=== PATIENT | female | born 1935 | race Caucasian/White ===

== ENCOUNTER 2017-08-14 09:05 | Emergency (ER) | payer OTHER, BC ==
--- NOTE | 2017-08-14 09:52 | EDPHYS ---
Physician Documentation [facility] Name: Jordan Arias Age: 81 yrs Sex: Female : 1935 Arrival Date: 08/14/2017 Time: 09:07 Bed 23 Private MD: Oswaldo Lawrence ED Physician Eligio Boyd HPI: 08/14 09:49 This 81 yrs old Female presents to ER via Ambulatory with complaints of Rash. rn 09:49 The patient's rash thought to be caused by an unknown cause. The rash is located on the rn back. The rash can be described as crusted, erythematous, vesicular. Onset: The symptoms/episode began/occurred yesterday. Severity of symptoms: At their worst the symptoms were mild in the emergency department the symptoms are unchanged. The patient has not experienced similar symptoms in the past. Reports rash to right flank that began yesterday or noticed yesterday, no trauma, no fever. . Historical: - Allergies: 09:20 No Known Allergies; sv - PMHx: 09:20 Atrial Fib; sv - PSHx: 09:20 Appendectomy; Mastectomy; Tonsillectomy; sv - Immunization history:: Adult Immunizations up to date. - Social history:: Smoking status: Patient/guardian denies using tobacco. - Ebola Screening: : No symptoms or risks identified at this time. - Family history:: not pertinent. - Hospitalizations: : No recent hospitalization is reported. ROS: 09:49 Constitutional: Negative for fever, chills, and weight loss, Skin: + rash rn Exam: 09:49 Constitutional: This is a well developed, well nourished patient who is awake, alert, rn and in no acute distress. Skin: Warm, dry. + right flank/back with linear erythematous and pustular/crusted rash that does not cross midline Vital Signs: 09:20 BP 157 / 63; Pulse 62; Resp 18; Temp 98.2; Pulse Ox 95% ; Weight 71.67 kg; Height 5 ft. sv 7 in. (170.18 cm); Pain 0/10; 09:20 Body Mass Index 24.75 (71.67 kg, 170.18 cm) sv MDM: 09:33 Patient medically screened. rn 09:49 Differential diagnosis: zoster. Data reviewed: vital signs, nurses notes, and as a rn result, I will discharge patient. Counseling: I had a detailed discussion with the patient and/or guardian regarding: the historical points, exam findings, and any diagnostic results supporting the discharge/admit diagnosis, the need for outpatient follow up, to return to the emergency department if symptoms worsen or persist or if there are any questions or concerns that arise at home. Special discussion: I discussed with the patient/guardian in detail that at this point there is no indication for admission to the hospital. It is understood, however, that if the symptoms persist or worsen the patient needs to return immediately for re-evaluation. Administered Medications: No medications were administered Disposition: 08/14/17 09:51 Discharged to Home. Impression: Zoster without complications. - Condition is Stable. - Discharge Instructions: Shingles. - Prescriptions for Valtrex 1 g Oral Tablet - take 1 tablet by ORAL route every 8 hours for 7 days; 21 tablet. Medrol (Bashir) 4 mg Oral Tablets, Dose Pack - take 1 tablet by ORAL route as directed - follow package instructions; 1 packet. - Medication Reconciliation Form, Thank You Letter, Antibiotic Education, Prescription Opioid Use form. - Follow up: Oswaldo Lawrence MD; When: As needed; Reason: Recheck today's complaints, Re-evaluation by your physician. - Problem is new. - Symptoms are unchanged. Signatures: Sandra Cox RN RN Eligio De La Garza MD MD rn Smirch, Shelby, RN RN ss Corrections: (The following items were deleted from the chart) 09:57 09:51 08/14/2017 09:51 Discharged to Home. Impression: Zoster without complications. ss Condition is Stable. Forms are Medication Reconciliation Form, Thank You Letter, Antibiotic Education, Prescription Opioid Use. Follow up: Oswaldo Lawrence; When: As needed; Reason: Recheck today's complaints, Re-evaluation by your physician. Problem is new. Symptoms are unchanged. rn
--- NOTE | 2017-08-14 09:52 | ER ---
Nurse's Notes [facility] Name: Jordan Arias Age: 81 yrs Sex: Female : 1935 Arrival Date: 08/14/2017 Time: 09:07 Bed 23 Private MD: Oswaldo Lawrence Diagnosis: Zoster without complications Presentation: 08/14 09:19 Presenting complaint: Patient states: rash to the back. "I think it's shingles.". sv Transition of care: patient was not received from another setting of care. Onset of symptoms was August 13, 2017. Care prior to arrival: None. 09:19 Method Of Arrival: Ambulatory sv 09:19 Acuity: ERIN 5 sv 09:57 Risk Assessment: Do you want to hurt yourself or someone else? Patient reports no ss desire to harm self or others. Initial Sepsis Screen: Does the patient meet any 2 criteria? No. Patient's initial sepsis screen is negative. Does the patient have a suspected source of infection? No. Patient's initial sepsis screen is negative. Historical: - Allergies: 09:20 No Known Allergies; sv - PMHx: 09:20 Atrial Fib; sv - PSHx: 09:20 Appendectomy; Mastectomy; Tonsillectomy; sv - Immunization history:: Adult Immunizations up to date. - Social history:: Smoking status: Patient/guardian denies using tobacco. - Ebola Screening: : No symptoms or risks identified at this time. - Family history:: not pertinent. - Hospitalizations: : No recent hospitalization is reported. Screenin:31 Abuse screen: Denies threats or abuse. Denies injuries from another. Nutritional ss screening: No deficits noted. Tuberculosis screening: Never had TB. Fall Risk None identified. Assessment: 09:31 General: Appears in no apparent distress. comfortable, Behavior is calm, cooperative. ss Neuro: Level of Consciousness is awake, alert, obeys commands, Oriented to person, place, time, situation. Cardiovascular: Capillary refill < 3 seconds is brisk in bilateral fingers. Respiratory: Airway is patent Respiratory effort is even, unlabored, Respiratory pattern is regular, symmetrical. GI: No signs and/or symptoms were reported involving the gastrointestinal system. EENT: Oral mucosa is moist. Derm: Skin is intact, is healthy with good turgor, Skin is pink, warm \\T\\ dry. normal. Musculoskeletal: Circulation, motion, and sensation intact. Capillary refill < 3 seconds, is brisk, in bilateral fingers. Range of motion: intact in all extremities. Vital Signs: 09:20 BP 157 / 63; Pulse 62; Resp 18; Temp 98.2; Pulse Ox 95% ; Weight 71.67 kg; Height 5 ft. sv 7 in. (170.18 cm); Pain 0/10; 09:20 Body Mass Index 24.75 (71.67 kg, 170.18 cm) sv ED Course: 09:07 Patient arrived in ED. sb2 09:07 Oswaldo Lawrence MD is Private Physician. sb2 09:20 Triage completed. sv 09:25 Violette Weber RN is Primary Nurse. ss 09:31 Patient has correct armband on for positive identification. Bed in low position. Call ss light in reach. 09:33 Eligio Boyd MD is Attending Physician. rn 09:51 Oswaldo Lawrence MD is Referral Physician. rn 09:56 No provider procedures requiring assistance completed. Patient did not have IV access ss during this emergency room visit. 09:57 Arm band placed on right wrist. ss Administered Medications: No medications were administered Outcome: 09:51 Discharge ordered by . rn 09:56 Discharged to home ambulatory, with family. ss 09:56 Condition: good 09:56 Discharge instructions given to patient, family, Instructed on discharge instructions, follow up and referral plans. medication usage, Demonstrated understanding of instructions, follow-up care, medications, Prescriptions given X 2. 09:57 Patient left the ED. ss Signatures: Sandra Cox RN RN Eligio Boyd MD MD rn Smirch, Shelby, RN RN Sandy Llanos sb2 Corrections: (The following items were deleted from the chart) 09:22 09:20 BP 157 / 63; Pulse 62bpm; Resp 18bpm; Pulse Ox 95%; 71.67 kg; Height 5 ft. 7 in.; sv BMI: 24.7; Pain 0/10; sv
== END 2017-08-14 09:57 | disposition home or self-care (01) ==
LOC: ER 09:05
DX: B02.9 Zoster without complications (principal); I48.91 Unspecified atrial fibrillation
CPT/HCPCS: 99282

== ENCOUNTER 2019-12-27 11:08 | Observation (INO) | payer OTHER, BC ==
[2019-12-27 11:42] LABS: Absolute Lymphocytes (CBC) 1.9 K/uL (0.7-4.9); Basophils % 0.9 % (0-1.3); Hematocrit 40.6 % (36.0-45.0); Lymphocytes % 30.6 % (15.3-44.8); MPV 9.9 fL (7.6-11.3); RBC Red Blood Cell Count 4.21 M/uL (3.86-4.86)
[2019-12-27 11:43] LABS: Protime INR 1.43
[2019-12-27 12:04] LABS: ALT/SGPT 21 U/L (12-78); AST/SGOT 28 U/L (15-37); Albumin 3.2 g/dL (3.4-5.0); Alkaline Phosphatase 115 U/L (45-117); BUN Blood Urea Nitrogen 11 mg/dL (7-18); Bicarbonate 27 mmol/L (21-32); Bilirubin Direct 0.2 mg/dL (0-0.2); Bilirubin Total 0.6 mg/dL (0.2-1.0); Glucose Level 131 mg/dL (74-106); Magnesium 2.2 mg/dL (1.8-2.4); NT PRO-BNP 1445 pg/mL (<450); Potassium 3.4 mmol/L (3.5-5.1); Protein, Total 7.4 g/dL (6.4-8.2); Sodium Level 144 mmol/L (136-145); Troponin (Emerg Dept Use Only) < 0.02 ng/mL (0.0-0.045)
--- NOTE | 2019-12-27 12:41 | RAD REPORT ---
EXAM DESCRIPTION: RAD - Chest Single View - 12/27/2019 12:15 pm CLINICAL HISTORY: PALPITATIONS COMPARISON: Portable April 2014 TECHNIQUE: AP portable chest image was obtained 12/27/2019 12:15 pm . FINDINGS: Chronic interstitial lung disease is present more pronounced than seen previously. No mass or consolidations seen. Mediastinal and hilar regions are similar to the comparison. Heart and vascu lature are normal. No measurable pleural effusion and no pneumothorax. No acute bone finding. Promine nt costochondral calcifications are present. No acute aortic findings suspected. IMPRESSION: Diffusely prominent interstitial pattern progressive from 2015. No focal mass or consoli dation. Interval change in the interstitial pattern may represent progressive fibrosis. A superimposed mild i nterstitial edema or infiltrate can have a similar appearance.
--- NOTE | 2019-12-27 13:13 | ER ---
Nurse's Notes [facility] Name: Jordan Arias Age: 84 yrs Sex: Female : 1935 Arrival Date: 12/27/2019 Time: 11:17 Bed 18 Private MD: Diagnosis: Atrial fibrillation and flutter-rapid ventricular response;Chest pain, unspecified Presentation: 12/26 11:18 Chief complaint: EMS states: called out for dizziness, palpitations, chest pain that sv started about an hour ago. Pt denies symptoms at this time and reports that she does feel better. Hx Afib. Coronavirus screen: Client denies travel out of the [place] in the last 14 days. Coronavirus screen: At this time, the client does not indicate any symptoms associated with coronavirus-19. Ebola Screen: No symptoms or risks identified at this time. Initial Sepsis Screen: Does the patient meet any 2 criteria? No. Patient's initial sepsis screen is negative. Does the patient have a suspected source of infection? No. Patient's initial sepsis screen is negative. Risk Assessment: Do you want to hurt yourself or someone else? Patient reports no desire to harm self or others. Onset of symptoms was December 27, 2019. 11:18 Method Of Arrival: EMS: [facility] sv 11:18 Acuity: ERIN 3 sv Triage Assessment: 11:18 General: Appears in no apparent distress. comfortable, well groomed, well developed, sv Behavior is calm, cooperative, appropriate for age. Pain: Denies pain. Neuro: Level of Consciousness is awake, alert, obeys commands, Oriented to person, place, time, situation, Moves all extremities. Full function. Cardiovascular: Rhythm is atrial fibrillation. Cardiovascular: Denies chest pain, palpitations. Respiratory: Airway is patent Respiratory effort is Respiratory pattern is regular, symmetrical. Derm: Skin is pink, warm \T\ dry. Historical: - Allergies: 11:21 No Known Allergies; sv - PMHx: 11:21 Atrial Fib; sv - PSHx: 11:21 Appendectomy; Tonsillectomy; Mastectomy, Left(1969); sv - Immunization history:: Adult Immunizations up to date. - Social history:: Smoking status: Patient denies any tobacco usage or history of. Screenin:22 Abuse screen: Denies threats or abuse. Denies injuries from another. Nutritional sv screening: No deficits noted. Tuberculosis screening: No symptoms or risk factors identified. Fall Risk None identified. Assessment: 11:35 Reassessment: Patient appears in no apparent distress at this time. No changes from sv previously documented assessment. Patient and/or family updated on plan of care and expected duration. Pain level reassessed. Patient is alert, oriented x 3, equal unlabored respirations, skin warm/dry/pink. 12:30 Reassessment: Patient appears in no apparent distress at this time. No changes from sv previously documented assessment. Patient and/or family updated on plan of care and expected duration. Pain level reassessed. Patient is alert, oriented x 3, equal unlabored respirations, skin warm/dry/pink. 14:42 Reassessment: Patient appears in no apparent distress at this time. No changes from sv previously documented assessment. Patient and/or family updated on plan of care and expected duration. Pain level reassessed. Patient is alert, oriented x 3, equal unlabored respirations, skin warm/dry/pink. 15:00 Reassessment: Patient appears in no apparent distress at this time. No changes from sv previously documented assessment. Patient and/or family updated on plan of care and expected duration. Pain level reassessed. Patient is alert, oriented x 3, equal unlabored respirations, skin warm/dry/pink. Vital Signs: 11:18 BP 152 / 54; Pulse 64; Resp 14; Temp 98.3; Pulse Ox 98% ; Weight 61.23 kg; Height 5 ft. sv 8 in. (172.72 cm); 12:59 BP 123 / 55; Pulse 96 MON; Resp 20; Pulse Ox 99% ; sv 14:43 BP 128 / 48; Pulse 76 MON; Resp 19; Pulse Ox 97% on R/A; sv 15:13 BP 135 / 59; Pulse 88; Resp 16; Pulse Ox 99% ; sv 11:18 Body Mass Index 20.53 (61.23 kg, 172.72 cm) sv 12:59 A fib sv 14:43 A fib sv ED Course: 11:17 Patient arrived in ED. sv 11:18 Sandra Cox, TAWANA is Primary Nurse. sv 11:18 Aaron Nichole NP is PHCP. pm1 11:18 Eligio Boyd MD is Attending Physician. pm1 11:20 Triage completed. sv 11:20 Patient maintains SpO2 saturation greater than 95% on room air. sv 11:21 Arm band placed on. sv 11:22 Patient has correct armband on for positive identification. Placed in gown. Bed in low sv position. Call light in reach. Side rails up X2. Adult w/ patient. library monitor on. Pulse ox on. NIBP on. Door closed. Head of bed elevated. 11:24 EKG done, by ED staff, reviewed by Aaron Nichole NP. em1 11:45 X-ray(s) taken. sv 11:55 XRAY Chest (1 view) Sent. sv 11:56 Awaiting lab results, Awaiting radiology results. sv 12:15 XRAY Chest (1 view) In Process Unspecified. EDMS 13:12 Yesenia Lawrence MD is Hospitalizing Provider. pm1 14:40 Awaiting bed assignment. sv 15:02 No provider procedures requiring assistance completed. Patient admitted, IV remains in sv place. intact. Administered Medications: 11:35 Drug: NS 0.9% 500 ml Route: IV; Rate: bolus; Site: left antecubital; sv 12:55 Follow up: Response: No adverse reaction; IV Status: Completed infusion; IV Intake: sv 500ml 13:22 Drug: Potassium Chloride 40 mEq Route: PO; sv 14:00 Follow up: Response: No adverse reaction sv Intake: 12:55 IV: 500ml; Total: 500ml. sv Outcome: 13:12 Decision to Hospitalize by Provider. pm1 15:02 Admitted to Tele accompanied by tech, via wheelchair, room 431, with chart, Report sv called to Irene GILLIAM 15:02 Condition: stable 15:02 Instructed on the need for admit. 15:12 Patient left the ED. sv Signatures: Dispatcher [employer] Sandra Vargas RN RN sv Martinez, Eric em1 Aaron Nichole NP RESP THER pm1
--- NOTE | 2019-12-27 13:13 | EDPHYS ---
Physician Documentation [facility] Name: Jordan Arias Age: 84 yrs Sex: Female : 1935 Arrival Date: 12/27/2019 Time: 11:17 Bed 18 Private MD: ED Physician Eligio Boyd HPI: 12/26 11:18 This 84 yrs old Female presents to ER via EMS with complaints of Dizziness, pm1 Chest Pain, Palpitations. 11:18 The patient presents with a history of heart racing. Context: The symptoms occur at pm1 rest. Onset: The symptoms/episode began/occurred just prior to arrival. Duration: The patient or guardian reports a single episode, that is now resolved. Modifying factors: The symptoms are aggravated by nothing. The symptoms are alleviated by IV fluids from EMS. Associated signs and symptoms: Pertinent positives: chest pain, SOB, Dizziness, Pertinent negatives: fever. Severity of symptoms: in the emergency department the symptoms have resolved. The patient has experienced similar episodes in the past, Patient reports monthly episodes of palpitations that are short in duration and resolve without any intervention. Today she had palpitations for 20 minutes with chest pain, shortness of breath, and dizziness. She typically does not have any chest pain with her palpitations. The chest pain and duration of her palpitations is what brought her to the ER today. Historical: - Allergies: 11:21 No Known Allergies; sv - PMHx: 11:21 Atrial Fib; sv - PSHx: 11:21 Appendectomy; Tonsillectomy; Mastectomy, Left(1969); sv - Immunization history:: Adult Immunizations up to date. - Social history:: Smoking status: Patient denies any tobacco usage or history of. ROS: 11:18 Constitutional: Negative for fever, chills, and weight loss. pm1 11:18 Abdomen/GI: Negative for abdominal pain, nausea, vomiting, diarrhea, and constipation, Back: Negative for injury and pain, MS/Extremity: Negative for injury and deformity, Skin: Negative for injury, rash, and discoloration. 11:18 Cardiovascular: Positive for chest pain, palpitations, Negative for edema. 11:18 Respiratory: Positive for shortness of breath, Negative for cough. 11:18 Neuro: Positive for dizziness, Negative for headache, numbness, tingling, weakness. Exam: 11:18 Constitutional: This is a well developed, well nourished patient who is awake, alert, pm1 and in no acute distress. Head/Face: Normocephalic, atraumatic. 11:18 Back: No spinal tenderness. No costovertebral tenderness. Full range of motion. Skin: Warm, dry with normal turgor. Normal color with no rashes, no lesions, and no evidence of cellulitis. MS/ Extremity: Pulses equal, no cyanosis. Neurovascular intact. Full, normal range of motion. 11:18 Cardiovascular: Rate: tachycardic, actual rate is 105 bpm, Rhythm: irregular, Pulses: no pulse deficits are appreciated, Heart sounds: normal, normal S1and S2, Edema: is not appreciated. 11:18 Respiratory: Exam negative for acute changes, the patient does not display signs of respiratory distress, Respirations: normal, Breath sounds: are clear throughout. 11:18 Neuro: Exam negative for acute changes, Orientation: is normal, Mentation: is normal, Motor: is normal, moves all fours. Vital Signs: 11:18 BP 152 / 54; Pulse 64; Resp 14; Temp 98.3; Pulse Ox 98% ; Weight 61.23 kg; Height 5 ft. sv 8 in. (172.72 cm); 12:59 BP 123 / 55; Pulse 96 MON; Resp 20; Pulse Ox 99% ; sv 14:43 BP 128 / 48; Pulse 76 MON; Resp 19; Pulse Ox 97% on R/A; sv 15:13 BP 135 / 59; Pulse 88; Resp 16; Pulse Ox 99% ; sv 11:18 Body Mass Index 20.53 (61.23 kg, 172.72 cm) sv 12:59 A fib sv 14:43 A fib sv MDM: 11:18 Patient medically screened. pm1 13:11 Data reviewed: vital signs. Data interpreted: Pulse oximetry: on room air is 99 %. pm1 Interpretation: normal. Counseling: I had a detailed discussion with the patient and/or guardian regarding: the historical points, exam findings, and any diagnostic results supporting the discharge/admit diagnosis, lab results, radiology results, the need for further work-up and treatment in the hospital. 13:58 Physician consultation: A Melinda CORRALES was called at 13:15, was contacted at 14:01, pm1 regarding admission, patient's condition, and will see patient would like consultation with Dr. Layne, Continue her Eliquis and sotalol. 12/26 11:18 Order name: Basic Metabolic Panel; Complete Time: 12:07 pm1 12/26 11:18 Order name: CBC with Diff; Complete Time: 11:56 pm1 12/26 11:18 Order name: LFT's; Complete Time: 12:07 pm1 12/26 11:18 Order name: Magnesium; Complete Time: 12:07 pm1 12/26 11:18 Order name: NT PRO-BNP; Complete Time: 12:07 pm1 12/26 11:18 Order name: PT-INR; Complete Time: 11:56 pm1 12/26 11:18 Order name: Troponin (emerg Dept Use Only); Complete Time: 12:07 pm1 12/26 11:18 Order name: XRAY Chest (1 view); Complete Time: 12:47 pm1 12/26 11:18 Order name: EKG; Complete Time: 11:19 pm1 12/26 11:18 Order name: Cardiac monitoring; Complete Time: 11:23 pm1 12/26 11:18 Order name: EKG - Nurse/Tech; Complete Time: 11:23 pm1 12/26 11:18 Order name: TSH; Complete Time: 12:07 pm1 12/26 11:18 Order name: IV Saline Lock; Complete Time: 11:23 pm1 12/26 11:18 Order name: Labs collected and sent; Complete Time: 11:45 pm1 12/26 11:18 Order name: O2 Per Protocol; Complete Time: 11:23 pm1 12/26 11:18 Order name: O2 Sat Monitoring; Complete Time: 11:23 pm1 Administered Medications: 11:35 Drug: NS 0.9% 500 ml Route: IV; Rate: bolus; Site: left antecubital; sv 12:55 Follow up: Response: No adverse reaction; IV Status: Completed infusion; IV Intake: sv 500ml 13:22 Drug: Potassium Chloride 40 mEq Route: PO; sv 14:00 Follow up: Response: No adverse reaction sv Disposition: 15:19 Co-signature as Attending Physician, Eligio Boyd MD. rn Disposition: 12/27/19 13:12 Hospitalization ordered by Yesenia Lawrence for Observation. Preliminary diagnosis are Atrial fibrillation and flutter - rapid ventricular response, Chest pain, unspecified. - Bed requested for Telemetry/MedSurg (observation). - Status is Observation. sv - Condition is Stable. - Problem is new. - Symptoms are resolved. Signatures: Dispatcher [employer] EDSandra Roberts, Eligio Hickman RN, MD MD rn Marinas, Patrick, ASSISTANT PRODUCE MANAGER ASSISTANT PRODUCE MANAGER pm1 Agustina Velazquez Corrections: (The following items were deleted from the chart) 14:53 13:12 Hospitalization Ordered by A Melinda CORRALES for Observation. Preliminary diagnosis is eb Atrial fibrillation and flutter - rapid ventricular response; Chest pain, unspecified. Bed requested for Telemetry/MedSurg (observation). Status is Observation. Condition is Stable. Problem is new. Symptoms are resolved. pm1 15:12 14:53 12/27/2019 13:12 Hospitalization Ordered by A Melinda CORRALES for Observation. sv Preliminary diagnosis is Atrial fibrillation and flutter - rapid ventricular response; Chest pain, unspecified. Bed requested for Telemetry/MedSurg (observation). Status is Observation. Condition is Stable. Problem is new. Symptoms are resolved. eb
[2019-12-27] MEDS ORDERED: POTASSIUM CL SA 10 MEQ TAB PO ONE (13:31)
[2019-12-27 16:43] VITALS: BMI 20.5
[2019-12-27] MEDS: SOTALOL HCL 80 MG TAB PO SCH (16:55)
--- NOTE | 2019-12-27 19:01 | HP ---
Date of Admission: 12/27/2019 Chief Complaint: Chest pain, palpitation. History Of Present Illness: This is an 84-year-old pleasant female patient, who has history of atrial fibrillation, who takes her medications regularly, came into emergency room today with episode of palpitation. Along with that, she has episode of chest pain which was something unusual for her as she normally does not have any chest pain. She came into emergency room with this. After she was evaluated, she was admitted to the hospital. Allergies: NO KNOWN ALLERGIES. Review of Systems: Cardiovascular: As mentioned above. All other systems reviewed and negative. Past Medical History: Significant for paroxysmal atrial fibrillation, breast cancer, osteoporosis, constipation, hyperlipidemia, and chronic anticoagulation therapy. Past Surgical History: Tonsillectomy, left-sided mastectomy due to cancer in 1978, appendectomy. Family History: Father had Alzheimer. Social History: Negative for smoking and alcohol use. DICTATION ENDS HERE. BALTAZAR/DREA Voice ID: [id number] MTDD
[2019-12-27] MEDS: APIXABAN 5 MG TABLET PO SCH (20:47)
[2019-12-28 04:23] LABS: Absolute Lymphocytes (CBC) 2.5 K/uL (0.7-4.9); Basophils % 1.1 % (0-1.3); Hematocrit 37.8 % (36.0-45.0); Lymphocytes % 37.5 % (15.3-44.8); MPV 10.2 fL (7.6-11.3); RBC Red Blood Cell Count 3.95 M/uL (3.86-4.86)
[2019-12-28 04:33] LABS: Potassium 4.5 mmol/L (3.5-5.1)
[2019-12-28] MEDS: SOTALOL HCL 80 MG TAB PO SCH (05:58)
[2019-12-28 08:01] VITALS: BP 156/68; TEMP 97.5
[2019-12-28] MEDS: APIXABAN 5 MG TABLET PO SCH (08:12)
[2019-12-28 08:40] VITALS: O2SAT 94
--- NOTE | 2019-12-28 10:10 | RAD REPORT ---
EXAM DESCRIPTION: CT - Thorax Wo Con - 12/28/2019 8:03 am CLINICAL HISTORY: sob COMPARISON: December 27, 2019 x-ray TECHNIQUE: Computed axial tomography of the chest was obtained. Contrast was not requested. All CT scans are performed using dose optimization technique as appropriate and may include automated exposure control or mA/KV adjustment according to patient size. FINDINGS: The evaluation of mediastinum, chelly and vessels is limited secondary to lack of IV contras t administration. Mild reticular subpleural opacities are present within right upper and right lower lobes. Small lingu lar opacity. No mediastinal or hilar lymphadenopathy is seen. A pleural effusion is not present. No pericardial effusion. Calcified pulmonary granulomas are presen t. Coronary arterial calcifications are seen. Cholelithiasis IMPRESSION: Mild right upper and right lower interstitial opacities may represent mild pulmonary fib rosis. Small lingular opacity probably chronic. Cholelithiasis without evidence cholecystitis
--- NOTE | 2019-12-29 07:38 | ECHO ---
HEIGHT: 5 ft 8 in WEIGHT: 135 lb 0 oz DATE OF STUDY: 12/28/[address]: Aaron Nichole NP 2-DIMENSIONAL: YES M.MODE: YES DOPPLER: YES COLOR FLOW: YES TDS: PORTABLE: DEFINITY: BUBBLE STUDY: DIAGNOSIS: ATRIAL FIBRILLATION WITH RAPID VENTRICULAR RESPONSE, CHEST PAIN CARDIAC HISTORY: CATHERIZATION: NO SURGERY: NO PROSTHETIC VALVE: NO PACEMAKER: NO MEASUREMENTS (cm) DIASTOLIC (NORMALS) SYSTOLIC (NORMALS) IVSd 1.2 (0.6-1.2) LA Diam 3.6 (1.9-4.0) LVEF 65% LVIDd 3.6 (3.5-5.7) LVIDs 2.4 (2.0-3.5) %FS 35% LVPWd 1.2 (0.6-1.2) Ao Diam 2.8 (2.0-3.7) 2 DIMENSIONAL ASSESSMENT: RIGHT ATRIUM: NORMAL LEFT ATRIUM: ENLARGED RIGHT VENTRICLE: NORMAL LEFT VENTRICLE: MILD LEFT VENTRICULAR HYPERTROPHY TRICUSPID VALVE: TRICUSPID REGURGITATION MITRAL VALVE: MODERATE MITRAL REGURGITATION PULMONIC VALVE: NORMAL AORTIC VALVE: MODERATE AORTIC INSUFFIENCY PERICARDIAL EFFUSION: NONE AORTIC ROOT: NORMAL LEFT VENTRICULAR WALL MOTION: NORMAL DOPPLER/COLOR FLOW: SEE BELOW COMMENTS: NORMAL LEFT VENTRICULAR EJECTION FRACTION 55-60% WITH NORMAL WALL MOTION. MODERATE MITRAL REGURGITATION, MODERATE AORTIC INSUFFIENCY, MILD TRICUSPID REGURGITATION. LEFT ATRIAL ENLARGEMENT. MODERATE PULMONARY HYPERTENSION WITH RIGHT VENTRICULAR SYSTOLIC PRESSURE OF 45-50 mmHg. DIASTOLIC DYSFUNCTION AND MILD LEFT VENTRICULAR HYPERTROPHY. TECHNOLOGIST: BERKLEY CARBAJAL
--- NOTE | 2019-12-29 09:05 | SS ---
Date of Discharge: 12/28/2019 Medications: Eliquis 5 mg 2 times a day and sotalol 120 mg 2 times a day. Physical Examination: Vital Signs: Height 5 feet 8 inches, weight 135 pounds, temperature 97.1, pulse 57, respiratory rate 16, blood pressure 144/65, oxygen saturation 99%. General: Awake, alert, oriented, not in distress. HEENT: Head atraumatic, normocephalic. Conjunctivae nonerythematous. Sclerae white. Mouth, no thr ush or edema noted. Ears/Nose, no mass, lesion, discharge noted. Neck: Supple. No JVD, lymph nodes, bruit, thyromegaly noted. Lungs: Bilateral good equal air entry. Clear to auscultation. No rhonchi. No rales. Heart: Normal heart sounds, no murmur or gallop. Abdomen: Soft, bowel sounds normal. No guarding, rigidity, tenderness, mass, hepatosplenomegaly, dis tention, or bruit noted. Extremities: No leg edema. No calf tenderness. Skin: No rash, ulcer, cellulitis. Lymphatics: No lymph node enlargement in neck, supraclavicular, infraclavicular region. Neuro: No focal neurological deficit. Chest: Unremarkable. External Genitalia: Deferred. Rectal: Deferred. Laboratory Data: Yesterday white count 6.2, hemoglobin 13.8, platelets 212. This morning, white cou nt 6.6, hemoglobin 12.5, platelets 196. Yesterday sodium 144, potassium 3.4, chloride 110, bicarb 27 , BUN 11, creatinine 0.80, glucose 131. Liver function tests unremarkable. Troponin less than 0.02 x3. TSH 1.7. This morning, sodium 144, potassium 4.5, chloride 112, bicarb 29, BUN 10, creatinine 0 .65, glucose . Hospital Course: After patient was evaluated in emergency room, she was admitted to the hospital. H er RI was ruled out, and when I saw her, she was asymptomatic. She had converted to sinus rhythm aft er her admission to the hospital and has been in sinus rhythm. Her chest x-ray has shown increased f ibrotic changes in bilateral lung sumner compared to 2015. So, CT scan of the chest was ordered and I will follow up on the results with the patient when she comes to see me as outpatient in next few d ays. Details were discussed with family. I also called tallier Dr. Layne. Details were disc ussed with him, and from Cardiology point of view, he has given me his okay for discharge. Medically she is stable for discharge with outpatient workup to be done like echocardiogram and a stress test, which Dr. Layne will pursue through his office and the patient and the patient's daughter were mad e aware of this plan. The patient was discharged to go home in stable condition with instruction to continue prior home medications. Follow up with Dr. Layne on 12/30/2019 at 8:30 a.m. and follow up at my office on 12/31/2019. Final Diagnoses: 1.Paroxysmal atrial fibrillation. 2.Breast cancer, left side. 3.Osteoporosis. 4.Hyperlipidemia. 5.Constipation. 6.Chronic anticoagulation therapy. 7.Hypokalemia. BALTAZAR/MODL Voice ID: [id number] Report ID: [id number]
== END 2019-12-28 10:23 | disposition home or self-care (01) ==
LOC: ER 11:08 → ERHOLD 14:04 → 4TH 15:03
PROVIDERS: ADMIT Internal Medicine; ATTEND Internal Medicine
DX: I48.0 Paroxysmal atrial fibrillation (principal); I08.3 Combined rheumatic disorders of mitral, aortic and tricuspid valves; I27.20 Pulmonary hypertension, unspecified; Z20.828 Contact with and (suspected) exposure to other viral communicable diseases; R94.31 Abnormal electrocardiogram [ECG] [EKG]; R91.8 Other nonspecific abnormal finding of lung field; Z79.01 Long term (current) use of anticoagulants; E87.6 Hypokalemia; K59.00 Constipation, unspecified; E78.5 Hyperlipidemia, unspecified; M81.0 Age-related osteoporosis without current pathological fracture; Z85.3 Personal history of malignant neoplasm of breast
CPT/HCPCS: 93005 ×2; 93306; 85025 ×2; 80048 ×2; 36415 ×2; 83735; 85610; 80076; 84443; 84484 ×3; 83880; 71250; 71045; 96360; 99285; U0002